=== PATIENT | male | born 2000 | race Caucasian/White ===

== ENCOUNTER 2023-01-17 13:33 | Emergency (ER) | payer SELFPAY ==
[~2023-01-17] VITALS: Ht 163.8 cm; Wt 74.9 kg
[2023-01-17 13:34] VITALS: BP 124/71
--- NOTE | 2023-01-17 13:43 | NUR ---
PT AMB TO BED 11.
--- NOTE | 2023-01-17 13:44 | NUR ---
22/M WALKED IN C/O RASH ON NECK AND FACE ONSET 1 WK. PT REPORTS BEING ALLERGIC TO SUN. DENIES THROAT SWELLING OR SOB. REDNESS NOTED TO NECK AND FACE. PMH: DENIES
--- NOTE | 2023-01-17 13:46 | NUR ---
Patient being evaluated by NELLIE MARVIN at bedside.
[2023-01-17] MEDS ORDERED: METR0.752 TP (14:00)
== END 2023-01-17 14:05 | disposition home or self-care (01) ==
LOC: MED 13:33 → EDSEX 13:33 → MED 14:05
DX: L71.9 Rosacea, unspecified (principal); Z79.899 Other long term (current) drug therapy
CPT/HCPCS: 99283

== ENCOUNTER 2023-10-04 18:34 | Emergency (ER) | payer MEDICAID ==
[~2023-10-04] VITALS: Ht 162.6 cm; Wt 74.8 kg
[~2023-10-04 18:34] MED LIST: METR0.752 TP
[2023-10-04 18:48] VITALS: BP 133/73; PULSE 86; RESP 16; TEMP 98; O2SAT 98
[2023-10-04] MEDS ORDERED: LIDOCAINE MPF 1% 10 MG/ML VIAL INJ ONE (19:30)
[2023-10-04] MEDS ORDERED: CEPH250C16 PO (19:44)
[2023-10-04 20:06] VITALS: BP 133/73; PULSE 86; RESP 16; TEMP 98; O2SAT 98
== END 2023-10-04 20:06 | disposition home or self-care (01) ==
LOC: MED 18:34
DX: L60.0 Ingrowing nail (principal); Z79.2 Long term (current) use of antibiotics
CPT/HCPCS: 11730; 99284; J2001